=== PATIENT | female | born 1960 | race Caucasian/White ===

== ENCOUNTER 2019-10-28 14:08 | Outpatient (CLI) | payer OTHER, SELFPAY ==
--- NOTE | ~2019-10-28 | US_ITS ---
US venous doppler LE RT DATE: 10/28/2019 14:53 INDICATION: Right leg pain TECHNIQUE: Real-time and color flow imaging and Doppler analysis of the veins of the right lower extr emity COMPARISON: None FINDINGS: The right greater saphenous vein is patent. There is spontaneous and phasic flow and normal augmentation and color flow signal and normal compression of the deep veins of the right lower extre mity. There is incomplete compression of the lesser saphenous vein in the calf area. IMPRESSION: Partial thrombosis of the lesser saphenous vein in the catheter No evidence of deep venous thrombosis of the right lower extremity Reviewed, dictated and finalized at [facility]. Reviewed, dictated and finalized at location A.
== END 2019-10-28 14:09 | disposition home or self-care (01) ==
PROVIDERS: PCP Internal Medicine; Visit Provider Physician Assistant
DX: M79.604 Pain in right leg (principal); I82.811 Embolism and thrombosis of superficial veins of right lower extremity
CPT/HCPCS: 93971

== ENCOUNTER 2019-12-22 09:24 | Outpatient (CLI) | payer OTHER, SELFPAY ==
--- NOTE | ~2019-12-22 | CT_ITS ---
EXAMINATION: CT abdomen wo/w con DATE: 12/22/2019 10:06 INDICATION: 5 mm cystic pancreatic tail lesion follow-up TECHNIQUE: Computed tomography (CT) of the abdomen was performed without and subsequently with 100 cc Omnipaque 350 intravenous contrast. Automated exposure control and iterative reconstruction techniqu e were employed. Exam dose: 2455.97 mGy-cm total exam DLP. COMPARISON: 12/26/2018 CT abdomen pelvis FINDINGS: The lung bases are clear. Normal heart size. No pericardial or pleural effusion. Small sliding hiatal hernia. Stable approximately 5 mm cystic lesion of the pancreatic tail compared to 12/26/2018 No hepatic, splenic, adrenal or renal space-occupying mass lesion is detected, other than approximate ly 10 mm left renal cyst. No urinary tract calculus or hydroureteronephrosis. Normal caliber of the abdominal aorta. No intraperitoneal or retroperitoneal mass lesion or adenopath y or ascites is detected. Normal appendix. No bowel obstruction or intraperitoneal free air. Small fat-containing umbilical hernia. Included skeletal structures are unremarkable. IMPRESSION: Small sliding hiatal hernia Stable 5 mm cystic lesion at pancreatic tail since 12/26/2018 10 mm left renal cyst Reviewed, dictated and finalized at [facility]. Reviewed, dictated and finalized at location A.
[2019-12-22 09:59] LABS: Estimated Glomerular Filt Rate > 60
== END 2019-12-22 09:25 | disposition home or self-care (01) ==
PROVIDERS: PCP Internal Medicine; Visit Provider Internal Medicine
DX: K86.89 Other specified diseases of pancreas (principal); N28.1 Cyst of kidney, acquired; K44.9 Diaphragmatic hernia without obstruction or gangrene
CPT/HCPCS: 36415; 74170; Q9967

== ENCOUNTER 2020-12-30 01:55 | Day surgery (SDC) | payer OTHER, SELFPAY ==
[2020-12-20 14:16] VITALS: BMI 36.3
[2020-12-30] MEDS: LACTATED RINGERS 1,000 ML 150 ML IV CONT (07:51)
[2020-12-30 07:56] VITALS: BP 145/84; PULSE 83; RESP 17; TEMP 36.4; O2SAT 97
--- NOTE | 2020-12-30 08:16 | WPDGICN ---
Assessment and Plan Assessment and plan (1) Throat pain in adult: Code(s): R07.0 - Pain in throat Status: Acute Assessment and Plan: Patient has a throat discomfort. Recent ENT evaluation unremarkable. (2) Dysphagia: Code(s): R13.10 - Dysphagia, unspecified Status: Acute Assessment and Plan: Patient complains of slow passage of all foods including liquids. Plan to evaluate with an EGD. Suspect this is related to her globus sensation. However with history of acid reflux will try to exclude narrowing of the esophagus. (3) Gastro-esophageal reflux disease without esophagitis: Code(s): K21.9 - Gastro-esophageal reflux disease without esophagitis Status: Acute Assessment and Plan: Patient has a long history of acid reflux. She has been on pantoprazole 40 mg p.o. daily for many years. She reports that this helps her cough although she states she still coughs while talking. (4) Globus sensation: Code(s): R09.89 - Other specified symptoms and signs involving the circulatory and respiratory systems Status: Acute GI Consult Note Consult date/time: 12/30/20 08:16 HPI: Darlene Good is a 60 year old female complains of throat discomfort. She feels as though food passes slowly through this area. Although she is able to swallow. She has distant history of heartburn many years ago. Has been on pantoprazole for many years for possible underlying acid reflux. Additionally she complains of a cough. The cough well could when talking. She was presumed to have acid reflux contributing to the cough and has been maintained on pantoprazole 40 mg p.o. daily. Recent evaluation by ENT service was unremarkable. Patient denies any bleeding. She has had no weight loss. She has had no recent heartburn. Review of Systems Review of Systems: All systems reviewed & are unremarkable except as noted in HPI and below PMFSH Past Medical History Medical History Acid reflux IBS (irritable bowel syndrome) Surgical History Surgical History H/O: hysterectomy History of section x2 Family History Family History Mother Cerebrovascular accident Patient's mother is Diabetes mellitus Hypertension Thyroid disorder Sibling Family history of diabetes mellitus in first degree relative Patient's brother is Diabetes mellitus Depression Heart disease Thyroid disorder Father Patient's father is Heart disease Social History Social History Smoking status: Never smoker Second hand tobacco smoke exposure: No Alcohol intake: current Drinks per week: 1 Substance use: never Substance use type: does not use Living arrangements: with family Spiritual care concerns: No Meds Home Medications and Allergies Home Medications Medication Instructions Recorded Confirmed Type psyllium husk 3.4 gram/5.4 gram 1 tbsp PO DAILY PRN 08/12/19 12/30/20 History oral powder Synthroid 112 mcg tablet 112 mcg PO DAILY #30 tablet NS 10/09/20 12/30/20 Rx pantoprazole 40 mg tablet,delayed 40 mg PO QAM #90 tablet 10/14/20 12/30/20 Rx release Allergies Allergy/AdvReac Type Severity Reaction Status Date / Time No Known Allergies Allergy Verified 12/30/20 07:54 Vital Signs Vital Signs - 24 hr 12/30/20 07:56 Temperature 97.5 F L Pulse Rate 83 Respiratory Rate 17 Blood Pressure 145/84 H Pulse Oximetry 97 Exam Narrative: Exam Narrative: Physical exam reveals patient be alert. Vital signs stable. HEENT exam unremarkable. Patient is anicteric. Lungs are clear to auscultation and percussion. Heart is without murmur or extra sounds. Abdominal exam
--- NOTE | 2020-12-30 08:19 | WPDANESEPPF ---
Anes - Initial Pre Proc Eval Procedure: Operation Date: 12/30/20 08:30 Proposed Procedures p Esophagogastroduodenoscopy - Edison Jacobs MD Date/Time: 12/30/20 08:19 Surgeon: Edison Jacobs MD Pre Op Diagnosis: dysphagia Patient Data Age: 60 Gender: F Height: 1.68 m Weight: 104.7 kg Last Vital Signs Temp 97.5 F L 12/30/20 07:56 Pulse 83 12/30/20 07:56 Resp 17 12/30/20 07:56 BP 145/84 H 12/30/20 07:56 Pulse Ox 97 12/30/20 07:56 Allergies Allergy/AdvReac Type Severity Reaction Status Date / Time No Known Allergies Allergy Verified 12/30/20 07:54 Home Medications Medication Instructions Recorded Confirmed Type psyllium husk 3.4 gram/5.4 gram 1 tbsp PO DAILY PRN 08/12/19 12/30/20 History oral powder Synthroid 112 mcg tablet 112 mcg PO DAILY #30 tablet NS 10/09/20 12/30/20 Rx pantoprazole 40 mg tablet,delayed 40 mg PO QAM #90 tablet 10/14/20 12/30/20 Rx release Patient hx anesthesia problems: none Family hx anesthesia problems: none PMFSH Past Medical History Medical History Acid reflux IBS (irritable bowel syndrome) Surgical History Surgical History H/O: hysterectomy History of section x2 Family History Family History Mother Cerebrovascular accident Patient's mother is Diabetes mellitus Hypertension Thyroid disorder Sibling Family history of diabetes mellitus in first degree relative Patient's brother is Diabetes mellitus Depression Heart disease Thyroid disorder Father Patient's father is Heart disease Social History Social History Smoking status: Never smoker Second hand tobacco smoke exposure: No Alcohol intake: current Drinks per week: 1 Substance use: never Substance use type: does not use Living arrangements: with family Spiritual care concerns: No Anes - Eval Final PreProcedure Day of Procedure 12/30/20 08:19 Patient weight: obese Heart: regular rate and rhythm Lungs: clear to auscultation Airway: Mallampati scale class II Neurological: alert and oriented Last oral intake: >/= 8 hours ASA classification: III Emergent: no Anesthetic plan: proceed Anesthesia type and monitoring: general GIVS and standard monitoring Informed Consent: The patient's anesthetic plan and its attendant risks and benefits were discussed with the patient/family/POA. Questions were solicited and answers provided to the satisfaction of the patient/family/POA.
[2020-12-30] MEDS: BENZOCAINE (*SP) 60 ML SPRAY CAN (HURRICAINE) 1 SPRAY MUCOUS MEM (08:29)
[2020-12-30 08:39] VITALS: BP 121/84; PULSE 75; RESP 20; O2SAT 95
[2020-12-30 08:49] VITALS: BP 128/82; PULSE 68; RESP 20; O2SAT 96
[2020-12-30 08:59] VITALS: BP 126/73; PULSE 60; RESP 18; O2SAT 95
== END 2020-12-30 09:10 | disposition home or self-care (01) ==
PROVIDERS: PCP Internal Medicine; Visit Provider Internal Medicine Gastroenterology
PROC: 0DJ08ZZ Inspection of Upper Intestinal Tract, Via Natural or Artificial Opening Endoscopic (ICD-10-PCS; CPT 43235; principal; 2020-12-30 08:30)
DX: R13.10 Dysphagia, unspecified (principal); K21.9 Gastro-esophageal reflux disease without esophagitis; R07.0 Pain in throat; K58.9 Irritable bowel syndrome, unspecified; E66.9 Obesity, unspecified; Z68.37 Body mass index [BMI] 37.0-37.9, adult
CPT/HCPCS: 43235; J2704; J7120

== ENCOUNTER 2021-07-20 09:15 | Outpatient (CLI) | payer OTHER, SELFPAY ==
[2021-07-20 12:47] LABS: Free T4 Free Thyroxine 1.43 ng/mL (0.78-2.19)
== END 2021-07-20 09:16 | disposition home or self-care (01) ==
PROVIDERS: PCP Internal Medicine; Visit Provider Internal Medicine Endocrinology, Diabetes & Metabolism
DX: E03.9 Hypothyroidism, unspecified (principal)
CPT/HCPCS: 36415; 84439; 84443

== ENCOUNTER 2022-08-21 01:50 | Day surgery (SDC) | payer OTHER, SELFPAY ==
[2022-08-08 14:52] VITALS: BMI 33.3
[2022-08-21 08:56] VITALS: BP 122/81; PULSE 72; RESP 16; TEMP 36.3; O2SAT 99
[2022-08-21] MEDS: LACTATED RINGERS 1,000 ML 150 ML IV CONT (09:07)
--- NOTE | 2022-08-21 09:32 | PM.HPGS ---
History of Present Illness History of Present Illness Consent: Risks, benefits, and alternatives have been discussed and questions answered. Patient agrees to proceed with procedure. Chief complaint: neoplasm screening Narrative: Darlene Good is a 61 year old female Presents for screening colonoscopy. Patient's current weight appetite and bowel movements are normal. Patient denies abdominal pain. She has had no bleeding. She denies abdominal pain. Patient previous colonoscopy 10 years ago was unremarkable performed by Dr. Edison Smith. Patient reports 1 month ago was seen in the emergency room because of right lower quadrant abdominal pain was told she had ileitis in responded to a trial of antibiotics. She currently is pain free. Her bowel habits currently in normal with no bleeding. She has no fever. Review of Systems Review of Systems: Review of systems noncontributory. [facility] Past Medical History Medical History Acid reflux Body mass index (BMI) 35 or more (10/11/17) Cough Dysphagia Dysuria Epigastric pain Flank pain, acute Gastro-esophageal reflux disease without esophagitis Generalized abdominal pain Globus sensation Hemorrhoids without complication Hiatal hernia Hoarseness of voice Hypothyroidism IBS (irritable bowel syndrome) Left hip pain Low back pain Pancreatic cyst Post-menopausal Renal cyst Snoring Thyroid disorder Upper respiratory tract infection Urinary tract infection, site not specified Vertigo Surgical History Surgical History H/O: hysterectomy History of section x2 History of knee surgery left knee Family History Family History Mother Cerebrovascular accident Patient's mother is Diabetes mellitus Hypertension Thyroid disorder Sibling Family history of diabetes mellitus in first degree relative Patient's brother is Diabetes mellitus Depression Heart disease Thyroid disorder Father Patient's father is Heart disease Social History Social History (Updated 08/01/22 @ 15:10 by Holly Partida MA) Smoking status: Never smoker Second hand tobacco smoke exposure: No Alcohol intake: current Drinks per week: 1 Substance use: never Lack of Transportation: No Lack of Food: Never True Current Housing: I Have Housing Concerned About Future Housing: No Difficulty Paying Gas/Electric Bills: No Difficulty Paying for Meds: No Currently Unemployed: No Education: Bachelor's Degree Difficulty w/ Childcare or Family Care: No Living arrangements: with family Spiritual care concerns: No Meds Home Medications and Allergies Home Medications Medication Instructions Recorded Confirmed Type psyllium husk 3.4 gram/5.4 gram 1 tbsp PO DAILY PRN Constipation 08/12/19 08/21/22 History oral powder (Metamucil) multivitamin 1 tablet PO DAILY 11/21/21 08/21/22 History omeprazole 20 mg capsule,delayed 20 mg PO DAILY 11/21/21 08/21/22 History release docusate sodium 100 mg capsule 100 mg PO DAILY PRN Constipation 07/10/22 08/21/22 History (Stool Softener) levothyroxine 125 mcg tablet 125 mcg .Route DAILY 07/10/22 08/21/22 History (Synthroid) Allergies Allergy/AdvReac Type Severity Reaction Status Date / Time No Known Allergies Allergy Verified 08/21/22 08:52 Vital Signs Vital Signs - 24 hr 08/21/22 08:56 Temperature 97.3 F L Pulse Rate 72 Respiratory Rate 16 Blood Pressure 122/81 Pulse Oximetry 99 Oxygen Delivery Room Air Exam Narrative: Physical exam reveals patient to be alert. Vital signs stable. HEENT exam is unremarkable. Patient is anicteric. Lungs are clear to auscultation and percussion. Heart is without murmur or some extra sounds. Abdomen bowel sounds present
--- NOTE | 2022-08-21 09:46 | WPDANESEPPF ---
Anes - Initial Pre Proc Eval Procedure: Operation Date: 08/21/22 10:00 Proposed Procedures p Screening Colonoscopy - Edison Jacobs MD Date/Time: 08/21/22 09:46 Surgeon: Edison Jacobs MD Pre Op Diagnosis: neoplasm screening Patient Data Age: 61 Gender: F Height: 1.68 m Weight: 93 kg Last Vital Signs Temp 97.3 F L 08/21/22 08:56 Pulse 72 08/21/22 08:56 Resp 16 08/21/22 08:56 BP 122/81 08/21/22 08:56 Pulse Ox 99 08/21/22 08:56 O2 Del Method Room Air 08/21/22 08:56 Allergies Allergy/AdvReac Type Severity Reaction Status Date / Time No Known Allergies Allergy Verified 08/21/22 08:52 Home Medications Medication Instructions Recorded Confirmed Type psyllium husk 3.4 gram/5.4 gram 1 tbsp PO DAILY PRN Constipation 08/12/19 08/21/22 History oral powder (Metamucil) multivitamin 1 tablet PO DAILY 11/21/21 08/21/22 History omeprazole 20 mg capsule,delayed 20 mg PO DAILY 11/21/21 08/21/22 History release docusate sodium 100 mg capsule 100 mg PO DAILY PRN Constipation 07/10/22 08/21/22 History (Stool Softener) levothyroxine 125 mcg tablet 125 mcg .Route DAILY 07/10/22 08/21/22 History (Synthroid) Patient hx anesthesia problems: none Family hx anesthesia problems: none Results Review: All pre-operative results and documents have been reviewed as part of the pre-operative evaluation. [facility] Past Medical History Medical History Acid reflux Body mass index (BMI) 35 or more (10/11/17) Cough Dysphagia Dysuria Epigastric pain Flank pain, acute Gastro-esophageal reflux disease without esophagitis Generalized abdominal pain Globus sensation Hemorrhoids without complication Hiatal hernia Hoarseness of voice Hypothyroidism IBS (irritable bowel syndrome) Left hip pain Low back pain Pancreatic cyst Post-menopausal Renal cyst Snoring Thyroid disorder Upper respiratory tract infection Urinary tract infection, site not specified Vertigo Surgical History Surgical History H/O: hysterectomy History of section x2 History of knee surgery left knee Family History Family History Mother Cerebrovascular accident Patient's mother is Diabetes mellitus Hypertension Thyroid disorder Sibling Family history of diabetes mellitus in first degree relative Patient's brother is Diabetes mellitus Depression Heart disease Thyroid disorder Father Patient's father is Heart disease Social History Social History (Updated 08/01/22 @ 15:10 by Holly Partida MA) Smoking status: Never smoker Second hand tobacco smoke exposure: No Alcohol intake: current Drinks per week: 1 Substance use: never Lack of Transportation: No Lack of Food: Never True Current Housing: I Have Housing Concerned About Future Housing: No Difficulty Paying Gas/Electric Bills: No Difficulty Paying for Meds: No Currently Unemployed: No Education: Bachelor's Degree Difficulty w/ Childcare or Family Care: No Living arrangements: with family Spiritual care concerns: No Anes - Eval Final PreProcedure Day of Procedure 08/21/22 09:46 Patient weight: obese Heart: regular rate and rhythm Lungs: clear to auscultation Airway: Mallampati scale class II Neurological: alert and oriented Last oral intake: >/= 8 hours ASA classification: II Emergent: no Anesthetic plan: proceed Anesthesia type and monitoring: general GIVS and standard monitoring Results Review: All pre-operative results and documents have been reviewed as part of the pre-operative evaluation. Informed Consent: The patient's anesthetic plan and its attendant risks and benefits were discussed with the patient/family/POA. Questions were solicited and answers provided
[2022-08-21 10:50] VITALS: BP 104/65; PULSE 69; RESP 20; O2SAT 97
[2022-08-21 11:00] VITALS: BP 127/69; PULSE 60; RESP 22; O2SAT 97
[2022-08-21 11:10] VITALS: BP 119/79; PULSE 53; RESP 22; O2SAT 100
== END 2022-08-21 11:18 | disposition home or self-care (01) ==
PROVIDERS: PCP Internal Medicine; Visit Provider Internal Medicine Gastroenterology
PROC: 0DJD8ZZ Inspection of Lower Intestinal Tract, Via Natural or Artificial Opening Endoscopic (ICD-10-PCS; CPT 45378; principal; 2022-08-21 10:00)
DX: Z12.11 Encounter for screening for malignant neoplasm of colon (principal); K63.5 Polyp of colon; K21.9 Gastro-esophageal reflux disease without esophagitis; R13.10 Dysphagia, unspecified; K44.9 Diaphragmatic hernia without obstruction or gangrene; K64.8 Other hemorrhoids
CPT/HCPCS: 45385; 88305; J2704; J7120

== ENCOUNTER 2023-01-08 14:23 | Outpatient (CLI) | payer OTHER, SELFPAY ==
[2023-01-08 17:31] LABS: Thyroid Stimulating Hormone 0.592 uIU/mL (0.465-4.680)
[2023-01-08 19:15] LABS: Free T4 Free Thyroxine 1.65 ng/mL (0.78-2.19); Vitamin D 25 Hydroxy 31.5 ng/mL
[2023-01-08 20:14] LABS: Hemoglobin A1C 5.8 % (<5.7)
== END 2023-01-08 14:24 | disposition home or self-care (01) ==
LOC: ANHWCLAB 14:25
PROVIDERS: PCP Internal Medicine; Visit Provider Internal Medicine Endocrinology, Diabetes & Metabolism
DX: E03.9 Hypothyroidism, unspecified (principal); R73.09 Other abnormal glucose; Z78.0 Asymptomatic menopausal state; R79.89 Other specified abnormal findings of blood chemistry
CPT/HCPCS: 36415; 82306; 83036; 84439; 84443

== ENCOUNTER 2023-10-04 10:06 | Outpatient (CLI) | payer BC, SELFPAY ==
--- NOTE | ~2023-10-04 | DEXA_ITS ---
Bone Density Report Name: MIGUEL PHAM Age: 63 Sex: Female Ethnicity: White Date of : 1960 Indication: postmenopausal; screening for osteoporosis; height loss; hysterectomy; Referring Provider: RUBÉN PIERSON Study: Bone densitometry was performed. Exam Date: October 04, 2023 Accession number: [id number] Bone Density: Region BMD T-score Z-score Classification AP Spine(L1-L4) 1.213 1.5 3.2 Normal Femoral Neck (Left) 0.871 0.2 1.7 Normal Total Hip (Left) 1.200 2.1 3.3 Normal Femoral Neck (Right) 0.929 0.7 2.2 Normal Total Hip (Right) 1.210 2.2 3.4 Normal Total Hip Mean 1.205 2.2 3.4 Normal World Health Organization criteria for BMD impression classify patients as: Normal (T-score at or above -1.0), Osteopenia (T-score between -1.0 and -2.5), or Osteoporosis (T-score at or below -2.5). 10-year Fracture Risk: FRAX not reported because: All T-scores for Spine Total, Hip Total, Femoral Neck at or above -1.0 Clinical Information Provided by Patient: Has used the following medications: Vitamin D, Calcium Has the following medical conditions: Hysterectomy Patient maximum height was 66 Menopause Age: 53 Drinks caffeinated beverages Onset of menses at age 11 Number of children 2 Impression: The patient has normal bone mass. Discussion: BONE DENSITY IS ABOVE THE MINIMUM DESIRABLE LEVEL AT ALL SKELETAL SITES TESTED. This patient?s bone mineral density is above the minimum desirable level (T-score -1.0 or better) at all sites measured. The patient should follow a healthful lifestyle (good nutrition with adequate calcium and vitamin D, and appropriate weight-bearing exercise). Follow-Up: Consider repeating this study in 5 years or sooner if there is some new clinical indication. Reported by: KATIUSKA on 10/04/2023 10:40:00 AM. Reviewed, dictated and finalized at location [facility]
--- NOTE | ~2023-10-04 | MM_ITS ---
EXAMINATION: MM screening jhonatan BI w anjel HISTORY: Screening mammogram TECHNIQUE: Craniocaudal and mediolateral oblique 3-D tomosynthesis images were obtained and synthetic 2-D images were generated. CAD analysis was submitted and interpreted. COMPARISON: 07/09/2018 bilateral screening mammogram BREAST PARENCHYMAL COMPOSITION: The breasts are almost entirely fatty. FINDINGS: There is no evidence of suspicious mass, calcification, or architectural distortion to sugg est malignancy in either breast. There is no suspicious interval change. IMPRESSION: 1. No mammographic evidence of malignancy. 2. Recommend routine screening mammography in one year. BI-RADS Category 1: Negative Reviewed, dictated and finalized at location A.
== END 2023-10-04 10:07 | disposition home or self-care (01) ==
LOC: ANHIMG 10:10
PROVIDERS: PCP Internal Medicine; Visit Provider Internal Medicine
DX: Z12.31 Encounter for screening mammogram for malignant neoplasm of breast (principal); Z78.0 Asymptomatic menopausal state
CPT/HCPCS: 77063; 77067; 77080

== ENCOUNTER 2024-10-02 11:34 | Outpatient (CLI) | payer MEDICARE, SELFPAY ==
--- NOTE | ~2024-10-02 | XR_ITS ---
XR hip LT min 2V 10/02/2024 12:05 Indication: Left hip pain Procedure: 2 views left hip Comparison: 10/22/2017 Findings: Mild osteoarthritis. No fracture. No subluxation. No soft tissue abnormality. No foreign salinas dies. Impression: 1: Mild osteoarthritis of the left hip. Reviewed, dictated and finalized at location A. Impression: 1: Mild osteoarthritis of the left hip.
--- OUTSIDE RECORDS SUMMARY | 2024-10-02 11:58 | XMS_ITS | Clinical Summary ---
Author Organization [facility] Address [address] [place] [address] Care Team Providers Care Network Control Supervisor Name Role Phone Coreybhavin Atul Bernal DO Primary Care Provider [phone] Source Comments [facility],non-owned Affiliates and Associated Physician Practices is amultiple site organization consisting of ambulatory clinics and hospital sitesin [place], [place], [place] and [place]. This disclosure is being madepursuant to the Care Everywhere program and may not contain all information available regarding this patient. Last updated 18.[facility] Allergies No known active allergies Medications * Be aware that medications may not be up to date on this document. Alwaysverify current medications with the patient. Multiple Vitamin (DAILY VITAMINS PO) Active Cetirizine HCl (ZYRTEC PO) Active levothyroxine (SYNTHROID) 112 MCG tablet Take 112 mcg by mouth daily before breakfast Active pantoprazole EC (PROTONIX) 40 MG tablet Take 40 mg by mouth once daily Active diphenhydramine 12.5mg/ml, 30ml,; visc lidocaine 2%, 30ml,; maalox, 30ml, (MIRACLE MOUTHWASH) SUSPIndications: Strep pharyngitis Swish and spit 10 mL every 4 hours as needed 90 mL 9 Active Family History Medical History Relation Name Comments CAD (Coronary Artery Disease) Brother 1 CAD (Coronary Artery Disease) Brother 2 CAD (Coronary Artery Disease) Father Diabetes - Type 2 Father CAD (Coronary Artery Disease) Mother Diabetes - Type 2 Mother Relation Name Status Comments Brother 1 Alive Brother 2 Father Mother Social History Tobacco Use Types Packs/Day Years Used Date Smoking Tobacco: Never Smokeless Tobacco: Never Alcohol Use Standard Drinks/Week Comments Yes 0 (1 standard drink = 0.6 oz pur e alcohol) occasionally Comments No Sex and Gender Information Value Date Recorded Sex Assigned at Not on file Legal Sex Female 10:36 AM CDT Gender Identity Not on file Sexual Orientation Not on file Last Filed Vital Signs Vital Sign Reading Time Taken Comments Blood Pressure 122/74 10/23/2018 11:25 AM CDT Pulse 64 10/23/2018 11:25 AM CDT Temperature 36.5 C (97.7 F) 10/23/2018 11:25 AM CDT Respiratory Rate 16 10/23/2018 11:25 AM CDT Oxygen Saturation 97% 10/23/2018 11:25 AM CDT Inhaled Oxygen Concentration - - Weight 99.8 kg (220 lb) 10/23/2018 11:25 AM CDT Height 167.6 cm (5' 6 ) 10/23/2018 11:25 AM CDT Body Mass Index 35.51 10/23/2018 11:25 AM CDT Plan of Treatment Health Maintenance Due Date Last Done Comments BONE DENSITY TESTING 1960 COLOGUARD (AGES 45-75) - COL ON CA SCREENING 1960 COLON MONITORING 1960 COLONOSCOPY - COLON CA SCREENING 1960 CT COLONOGRAPHY - COLON CA SCREENING 1960 Colorectal Cancer Screening 1960 FIT - COLON CA SCREENING 1960 FLEX SIG - COLON CA SCREENING 1960 LIPID TESTING 1960 MAMMOGRAM 1960 HIV SCREENING 08/31/1974 HEPATITIS C SCREENING 08/27/1977 DTAP/TDAP/TD VACCINES (1 - Tdap) 08/31/1978 PNEUMOCOCCAL VACCINE 50+ (1 of 1 - PCV) 08/31/2009 ZOSTER VACCINE (1 of 2) 08/31/2009 SCREENING FOR DIABETES 10/23/2018 COVID-19 VACCINE ( - 2023-2 5 season) 2024 DEPRESSION SCREENING 06/10/2024 INFLUENZA VACCINE (Season Ended) 2025 Respiratory Syncytial Virus (RSV) Vaccine Pt: or over 60 yrs (1 - 1-dose 75+ series) 08/31/2034 HEPATITIS B VACCINE Aged Out No longe r eligible based on patient's age to complete this topic HIB VACCINE Aged Out No longer eligi ble based on patient's age to complete this topic HPV VACCINE Aged Out No longer eligi ble based on patient's age to complete this topic MENINGOCOCCAL (Group B) VACC INE SHARED DECISION-MAKING Aged Out No longer eligibl e based on patient's age to complete this topic MENINGOCOCCAL GROUPS A/C/Y/W VACCINE Aged Out No longer eligible b ased on patient's age to complete this topic Insurance [employer] Address: [facility] [id number] [place] [address] [employer] Care Teams Network Control Supervisor Relationship Specialty Start Date End Date Atul Rowe DO [address] [place], [place] [id number] PCP - General Internal Medicine 10/23/18
--- OUTSIDE RECORDS SUMMARY | 2024-10-02 11:58 | XMS_ITS | Encounter Summary ---
Author Organization [facility] Care Team Providers Care Resort Manager Name Role Phone Unknown, Notinfile Primary Care Provider Unavail able Atul Rowe MD Primary Care Provider [phone] Encounter Details Date Type Department Care Team (Latest Contact Info) Description 06/12/2015 Orders Only [facility] Provider, MD Hannah [address] [place] [id number] Social History Tobacco Use Types Packs/Day Years Used Date Smoking Tobacco: Never Assessed Comments Unknown Sex and Gender Information Value Date Recorded Sex Assigned at Not on file Legal Sex Female 2:10 AM BALANCE WHEEL FACER Gender Identity Not on file Sexual Orientation Not on file documented as of this encounter Plan of Treatment Not on file documented as of this encounter Procedures Procedure Name Priority Date/Time Associated Diagnosis Comments SCAN - LABS 09/27/2016 12:00 AM CDT documented in this encounter Results * SCAN - LABS (09/27/2016 12:00 AM CDT) Narrative 09/27/2016 12:00 AM CDT Ordered by an unspecified provider. Historical Provider Final Res ult documented in this encounter Visit Diagnoses Not on filedocumented in this encounter Additional Health Concerns Infection Onset Date Last Indicated Resolved Time COVID: Suspected 07/24/2022 07/24/2022 07/24/2022 6:01 PM BALANCE WHEEL FACER documented as of this encounter Care Teams Resort Manager Relationship Specialty Start Date End Date Unknown, Lashawn PCP - General 08/04/21 07/23/22 Atul Rowe MD [address] [place] [id number] PCP - General Internal Medicine 07/24/22 documented as of this encounter
--- OUTSIDE RECORDS SUMMARY | 2024-10-02 11:58 | XMS_ITS | Encounter Summary ---
Author Organization [facility] Facility Care Team Providers Care Developing Machine Operator Name Role Phone Unknown, Notinfile Primary Care Provider Unavail able Atul Rowe MD Primary Care Provider +1- [phone] Encounter Details Date Type Department Care Team (Latest Contact Info) Description 08/11/2015 Orders Only [facility] CLINCON[facility] ProviderHannah MD [address] [place] [address] Social History Tobacco Use Types Packs/Day Years Used Date Smoking Tobacco: Never Assessed Comments Unknown Sex and Gender Information Value Date Recorded Sex Assigned at Not on file Legal Sex Female 2:10 AM ADMISSION NURSE Gender Identity Not on file Sexual Orientation Not on file documented as of this encounter Plan of Treatment Not on file documented as of this encounter Procedures Procedure Name Priority Date/Time Associated Diagnosis Comments CARDIOLOGY REPORT 09/27/2016 12: 00 AM CDT documented in this encounter Results * CARDIOLOGY REPORT (09/27/2016 12:00 AM CDT) Anatomical Region Laterality Modality Other Narrative 09/27/2016 12:00 AM CDT Ordered by an unspecified provider. Historical Provider [facility] JASON TROTTER Final Result documented in this encounter Visit Diagnoses Not on filedocumented in this encounter Additional Health Concerns Infection Onset Date Last Indicated Resolved Time COVID: Suspected 07/24/2022 07/24/2022 07/24/2022 6:01 PM ADMISSION NURSE documented as of this encounter Care Teams Developing Machine Operator Relationship Specialty Start Date End Date Unknown, Lashawn PCP - General 08/04/21 07/23/22 Atul Rowe MD [address] [facility] [address] [place] [address] PCP - General Internal Medicine 07/24/22 documented as of this encounter
--- OUTSIDE RECORDS SUMMARY | 2024-10-02 11:58 | XMS_ITS | Referral Summary ---
Author Organization [facility] Address [address] [place] [address] Care Team Providers Care Corn Breeder Name Role Phone Atul Rowe MD Primary Care Provider +1- [phone] Allergies Active Allergy Reactions Criticality Noted Date Comments Lactase Stomach upset Low 08/09/2015 Stomach/GI Upset Medications levothyroxine (Synthroid) 112 mcg tablet Synthroid 112 mcg tablet once daily Active multivitamin tablet Take by mouth Active cetirizine (ZyrTEC) 10 mg tablet Take by mouth Active ondansetron (ZOFRAN) 4 mg tablet Take 1 tablet (4 mg total) by mouth every 6 (six) hours as needed for nausea or vomiting 12 tablet 3 Active Active Problems No known active problems Social History Tobacco Use Types Packs/Day Years Used Date Smoking Tobacco: Never Assessed Tobacco Cessation:Counseling Given: Not Answered Comments Unknown Sex and Gender Information Value Date Recorded Sex Assigned at Not on file Legal Sex Female 2:10 AM AGING BOX HAND Gender Identity Not on file Sexual Orientation Not on file Last Filed Vital Signs Vital Sign Reading Time Taken Comments Blood Pressure 134/75 07/24/2022 10:00 PM AGING BOX HAND Pulse 80 07/24/2022 10:00 PM AGING BOX HAND Temperature 37.1 C (98.8 F) 07/24/2022 4:25 PM AGING BOX HAND Respiratory Rate 18 07/24/2022 10:00 PM AGING BOX HAND Oxygen Saturation 96% 07/24/2022 7:35 PM AGING BOX HAND Inhaled Oxygen Concentration - - Weight 94.4 kg (208 lb 1.8 oz) 07/24/2022 4:25 P M AGING BOX HAND Height 167.6 cm (5' 6 ) 07/24/2022 4:25 PM AGING BOX HAND Body Mass Index 33.59 07/24/2022 4:25 PM AGING BOX HAND Plan of Treatment Not on file Insurance [employer] OPEN ACCESS CIGNA CIGNA Care Teams Corn Breeder Relationship Specialty Start Date End Date Atul Rowe MD [address] [facility] [address] [place] [address] PCP - General Internal Medicine 07/24/22
--- OUTSIDE RECORDS SUMMARY | 2024-10-02 11:58 | XMS_ITS | Encounter Summary ---
Author Organization [facility] Facility Care Team Providers Care Book Agent Name Role Phone Unknown, Notinfile Primary Care Provider Unavail able Atul Rowe MD Primary Care Provider +1- [phone] Encounter Details Date Type Department Care Team (Latest Contact Info) Description 07/30/2015 Orders Only [facility] CLINCONV ProviderHannah MD [address] [place] [address] Social History Tobacco Use Types Packs/Day Years Used Date Smoking Tobacco: Never Assessed Comments Unknown Sex and Gender Information Value Date Recorded Sex Assigned at Not on file Legal Sex Female 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
--- OUTSIDE RECORDS SUMMARY | 2024-10-02 11:58 | XMS_ITS | Encounter Summary ---
Author Organization [facility] Facility Care Team Providers Care Director Of Content And Programming Name Role Phone Unknown, Notinfile Primary Care Provider Unavail able Atul Rowe MD Primary Care Provider +1- [phone] Encounter Details Date Type Department Care Team (Latest Contact Info) Description 08/22/2015 Orders Only [facility] CLINCONV ProviderHannah MD [address] [place] [address] Social History Tobacco Use Types Packs/Day Years Used Date Smoking Tobacco: Never Assessed Comments Unknown Sex and Gender Information Value Date Recorded Sex Assigned at Not on file Legal Sex Female 2:10 AM LINE FIXER Gender Identity Not on file Sexual Orientation [...] COVID: Suspected 07/24/2022 07/24/2022 07/24/2022 6:01 PM LINE FIXER documented as of this encounter Care Teams Director Of Content And Programming Relationship Specialty Start Date End Date Unknown, Lashawn PCP - General 08/04/21 07/23/22 Atul Rowe MD [address] [facility] [address] [place] [address] PCP - General Internal Medicine 07/24/22 documented as of this encounter
--- OUTSIDE RECORDS SUMMARY | 2024-10-02 11:58 | XMS_ITS | Clinical Summary ---
Author Organization [facility] Address [address] [place] [address] Care Team Providers Care Senior Software Development Engineer Name Role Phone Atul Rowe MD Primary Care Provider +1- [phone] Allergies Active Allergy Reactions Criticality Noted Date [...] Active Active Problems No known active problems Surgical History Surgery Date Site/Laterality Comments HYSTERECTOMY SECTION Medical History Medical History Date Comments Hypothyroidism Social History Tobacco Use Types Packs/Day Years Used Date Smoking Tobacco: Never Assessed Tobacco Cessation:Counseling Given: Not Answered Comments Unknown Sex and Gender Information Value Date Recorded Sex Assigned at Not on file Legal Sex Female 2:10 AM BROTHEL KEEPER Gender Identity Not on file Sexual Orientation Not on file Obstetrics History Last Filed Vital Signs Vital Sign Reading Time Taken Comments Blood Pressure 134/75 07/24/2022 10:00 PM BROTHEL KEEPER Pulse 80 07/24/2022 10:00 PM BROTHEL KEEPER Temperature 37.1 C (98.8 F) 07/24/2022 4:25 PM BROTHEL KEEPER Respiratory Rate 18 07/24/2022 10:00 PM BROTHEL KEEPER Oxygen Saturation 96% 07/24/2022 7:35 PM BROTHEL KEEPER Inhaled Oxygen Concentration - - Weight 94.4 kg (208 lb 1.8 oz) 07/24/2022 4:25 P M BROTHEL KEEPER Height 167.6 cm (5' 6 ) 07/24/2022 4:25 PM BROTHEL KEEPER Body Mass Index 33.59 07/24/2022 4:25 PM BROTHEL KEEPER Plan of Treatment Health Maintenance Due Date Last Done Comments Breast Cancer Screening-Mammogram 1959 Colon Cancer Screening-Colonoscopy 1959 Depression Screening 1959 Fall Risk Assessment 1959 Hepatitis C Screening 1959 Osteoporosis Screening-Bone Density Scan 1959 DTaP/Tdap/Td Vaccine (1 - Tdap) 08/31/1970 Hepatitis B Screening 08/31/1977 Pneumococcal vaccine 65+ (1 of 1 - PCV) 08/31/2009 Zoster Vaccine (1 of 2) 08/31/2009 Covid-19 Vaccine ( - season) 2024 06/19/2021, 09/18/2020, 08/23/2020 Well Visit 65+ 08/31/2024 Influenza Vaccine (Season Ended) 2025 Insurance [employer] OPEN ACCESS CIGNA Care Teams Senior Software Development Engineer Relationship Specialty Start Date End Date Atul Rowe MD [address] [facility] [address] [place] [address] PCP - General Internal Medicine 07/24/22
--- OUTSIDE RECORDS SUMMARY | 2024-10-02 11:58 | XMS_ITS | Encounter Summary ---
Author Organization [facility] Facility Care Team Providers Care Rod Greaser Name Role Phone Unknown, Notinfile Primary Care Provider Unavail able Atul Rowe MD Primary Care Provider +1- [phone] Encounter Details Date Type Department Care Team (Latest Contact Info) Description 07/13/2015 Orders Only [facility] CLINCON[facility] ProviderHannah MD [address] [place] [address] Social History Tobacco Use Types Packs/Day Years Used Date Smoking Tobacco: Never Assessed Comments Unknown Sex and Gender Information Value Date Recorded Sex Assigned at Not on file Legal Sex Female 2:10 AM STABLE HAND Gender Identity Not on file Sexual Orientation Not on file documented as of this encounter Plan of Treatment Not on file documented as of this encounter Procedures Procedure Name Priority Date/Time Associated Diagnosis Comments CARDIOLOGY REPORT 09/27/2016 12: 00 AM CDT CARDIOLOGY REPORT 09/27/2016 12: 00 AM CDT CARDIOLOGY REPORT 09/27/2016 12: 00 AM CDT documented in this encounter Results * CARDIOLOGY REPORT (09/27/2016 12:00 AM CDT) Anatomical Region Laterality Modality Other Narrative 09/27/2016 12:00 AM CDT Ordered by an unspecified provider. Historical Provider [facility] JASON TROTTER Final Result * CARDIOLOGY REPORT (09/27/2016 12:00 AM CDT) Anatomical Region Laterality Modality Other Narrative 09/27/2016 12:00 AM CDT Ordered by an unspecified provider. us Historical Provider [facility] PROCE DURES Final Result * CARDIOLOGY REPORT (09/27/2016 12:00 AM CDT) Anatomical Region Laterality Modality Other Narrative 09/27/2016 12:00 AM CDT Ordered by an unspecified provider. us Historical Provider [facility] PROCE DURES Final Result documented in this encounter Visit Diagnoses Not on filedocumented in this encounter Additional Health Concerns Infection Onset Date Last Indicated Resolved Time COVID: Suspected 07/24/2022 07/24/2022 07/24/2022 6:01 PM STABLE HAND documented as of this encounter Care Teams Rod Greaser Relationship Specialty Start Date End Date Unknown, Notinfile PCP - General 08/04/21 07/23/22 Atul Rowe MD [address] [facility] [address] [place] [address] PCP - General Internal Medicine 07/24/22 documented as of this encounter
== END 2024-10-02 11:35 | disposition home or self-care (01) ==
PROVIDERS: PCP Internal Medicine; Visit Provider Nurse Practitioner
DX: M16.12 Unilateral primary osteoarthritis, left hip (principal)
CPT/HCPCS: 73502

== ENCOUNTER 2024-12-04 09:17 | Outpatient (CLI) | payer MEDICARE, SELFPAY ==
--- NOTE | ~2024-12-04 | MR_ITS ---
MRI of the left hip Clinical history: Pain Technique: Coronal T1-weighted, T2-weighted, and proton-density fat-sat images, and axial T1-weighted and proton-density fat-sat images were acquired through the pelvis. Coronal T2-weighted images and c oronal, axial, and sagittal proton-density fat-sat images were acquired through the left hip. Findings: There is no fracture or avascular necrosis or hip. Bone marrow signals the proximal femora and pelvic bones are unremarkable. There is small to moderate left hip joint effusion, presumably bharti ctive. There is moderate to high-grade chondral malacia the superior aspect of the left hip joint. No left acetabular labral tear evident. There is probable mild chondromalacia the right hip joint. No joint effusion. Visualized musculature about the pelvis and left hip is unremarkable. No muscle atrophy or edema. Rat ios tendons are intact. No other soft tissue mass or fluid collection seen. IMPRESSION: Moderate left hip joint osteoarthritis with small to moderate left hip joint effusion, presumably bharti ctive. Consider joint aspiration if indicated. Reviewed, dictated and finalized at location . IMPRESSION: Moderate left hip joint osteoarthritis with small to moderate left hip joint ef fusion, presumably reactive. Consider joint aspiration if indicated.
== END 2024-12-04 09:18 | disposition home or self-care (01) ==
LOC: MICIMG 09:18
PROVIDERS: PCP Internal Medicine; Visit Provider Internal Medicine
DX: M16.12 Unilateral primary osteoarthritis, left hip (principal)
CPT/HCPCS: 73721